=== PATIENT | female | born 1980 | race American Indian/Alaskan Native ===

== ENCOUNTER 2018-06-20 09:24 | Emergency (ER) | payer OTHER ==
[~2018-06-20] VITALS: Ht 160 cm; Wt 72.6 kg
[~2018-06-20 09:24] MED LIST: ACETAMINOPHEN-1 EAC1 PO; CLEOCIN HCL300 MG PO; IBUPROFEN 800800 M1 PO; NORCO 5-325 TA1 EACH PO; NORFLEX100 MG PO; TYLENOL325 MG PO; ULTRAM 50MG TAB50 MG PO
[2018-06-20] MEDS ORDERED: IBUPROFEN 800800 M1 PO (09:56)
[2018-06-20] MEDS ORDERED: HYDROCODONE-AP1 EAC6 PO (09:56)
[2018-06-20 10:03] VITALS: BP 147/97
== END 2018-06-20 10:03 | disposition home or self-care (01) ==
LOC: M.ERS 09:24
DX: G56.03 Carpal tunnel syndrome, bilateral upper limbs (principal); G43.909 Migraine, unspecified, not intractable, without status migrainosus; F17.210 Nicotine dependence, cigarettes, uncomplicated; Z90.49 Acquired absence of other specified parts of digestive tract; Z88.1 Allergy status to other antibiotic agents